=== PATIENT | male | born 1940 | race Hispanic/Latino ===

== ENCOUNTER → 2021-06-04 | Outpatient (CLI) | payer MEDICARE ==
[~2021-06-04] MED LIST: CEFTRIAXONE 1 GM VIAL ONE; FENTANYL CITRATE/PF 100MCG/2 ML INJ ONE; IOPAMIDOL 300MG/ML 100 ML INFUS..BTL IV ONE; IRR ONE; LIDOCAINE HCL 1% LOCAL INJ 20 ML VIAL ONE; MIDAZOLAM HCL 2 MG/2 ML VIAL ONE; SODIUM CHLORIDE 0.9% 250ML 250 ML ONE; SODIUM CHLORIDE 0.9% 500ML 500 ML ONE; SODIUM CHLORIDE 0.9% 50ML 50 ML ONE; SODIUM CHLORIDE 0.9% ONE
[2021-06-04 08:59] LABS: HEMOGLOBIN 11.2 g/dL (14.0-18.0)
[2021-06-04 09:07] LABS: INR 0.93; PROTHROMBIN TIME 12.9 seconds (11.9-14.5)
[2021-06-04 09:08] LABS: PARTIAL THROMBOPLASTIN TIME 28.5 seconds (23.8-35.5)
== END ==
LOC: DX 08:11
PROVIDERS: ATTEND Urology
DX: R33.9 Retention of urine, unspecified (principal); Z20.822 Contact with and (suspected) exposure to COVID-19
CPT/HCPCS: 36415; 51102; 76942; 85014; 85049; 85610; 85730; J0696; J2001; J2250; J3010; J7040; J7050; U0002; 99152; 99153; Q9967